=== PATIENT | female | born 1965 | race Caucasian/White ===

== ENCOUNTER 2017-11-12 07:31 | Emergency (ER) | payer BC ==
[~2017-11-12] VITALS: Ht 167.6 cm; Wt 69.9 kg
[2017-11-12 08:04] LABS: HEMATOCRIT 40.3 % (36.0-46.0); HEMOGLOBIN 13.8 G/DL (11.9-15.5); MCH 33.3 PG (29.0-34.0); MCHC 34.2 G/DL (30.0-36.0); MCV 97.3 FL (83-99); PLATELET COUNT 219 K/uL (156-360); RBC DIS.WIDTH-CV 12.4 % (11.8-14.6); RBC DIS.WIDTH-SD 44.5 % (39-53); RED BLOOD COUNT 4.14 M/uL (3.80-5.20); WHITE BLOOD COUNT 8.1 K/uL (4.1-10.2)
[2017-11-12] MEDS ORDERED: ASPIRIN81 M2 PO (08:07)
[2017-11-12 08:12] LABS: ALBUMIN 3.9 g/dL (3.2-4.8); CHLORIDE 106 mEq/L (99-109); POTASSIUM 4.4 mEq/L (3.7-5.4); SODIUM 138 mEq/L (136-147)
[2017-11-12 08:14] LABS: GLUCOSE 136 mg/dL (70-99); TOTAL PROTEIN 6.6 g/dL (6.4-8.3)
[2017-11-12 08:16] LABS: TOTAL BILIRUBIN 0.4 mg/dL (0.0-1.0)
[2017-11-12 08:18] LABS: ALKALINE PHOSPHATASE 58 IU/L (3-129); CREATININE 0.9 mg/dL (0.6-1.3); GFR ESTIMATE (CALCULATED) > 59 mL/min/
[2017-11-12 08:19] LABS: UREA NITROGEN (BUN) 12 mg/dL (9-23)
[2017-11-12 08:20] LABS: AST (GOT) 15 IU/L (2-34)
[2017-11-12 08:21] LABS: ALT (GPT) 11 IU/L (3-49)
[2017-11-12 09:00] LABS: APPEARANCE CLOUDY ((CLEAR)); BILIRUBIN NEGATIVE; BLOOD MODERATE; COLOR YELLOW ((YELLOW)); GLUCOSE (STRIP) NEGATIVE; KETONES NEGATIVE; LEUKOCYTES TRACE; NITRITE NEGATIVE; PROTEIN (STRIP) NEGATIVE; UROBILINOGEN 0.2 MG/DL (0.2-1.0)
[2017-11-12 10:17] LABS: BACTERIA 2+ /HPF; EPITHELIAL CELLS 1+ /HPF; MUCUS NONE SEEN /LPF; RED BLOOD CELLS 0-5 /HPF (0-5); WHITE BLOOD CELLS 0-5 /HPF (0-5)
[2017-11-12] MEDS ORDERED: NORCO 5/3251 TABLET PO (11:01)
[2017-11-12] MEDS ORDERED: ZOFRAN ODT8 MG PO (11:01)
[2017-11-12] MEDS ORDERED: FLOMAX0.4 MG PO (11:01)
[2017-11-12] MEDS ORDERED: MOTRIN600 MG PO (11:01)
[2017-11-12 11:17] VITALS: BP 114/72
== END 2017-11-12 11:18 | disposition home or self-care (01) ==
LOC: EME 07:31
PROVIDERS: Physician Assistant
DX: N23 Unspecified renal colic (principal); N20.0 Calculus of kidney; N28.89 Other specified disorders of kidney and ureter; E83.59 Other disorders of calcium metabolism; N29 Other disorders of kidney and ureter in diseases classified elsewhere; R93.5 Abnormal findings on diagnostic imaging of other abdominal regions, including retroperitoneum; Z88.2 Allergy status to sulfonamides
CPT/HCPCS: 74176; 80053; 81003; 85027; 99281; 99285; J1885